=== PATIENT | female | born 1970 | race Caucasian/White ===

== ENCOUNTER 2016-10-09 17:09 | Emergency (ER) | payer MEDICAID ==
[~2016-10-09] VITALS: Ht 162.6 cm; Wt 72.6 kg
[~2016-10-09 17:09] MED LIST: ADVAIR 10028 PUFF/IN IN; ADVAIR 250/5028 PUFF; ADVAIR 250/5028 PUFF IN; ALBUTEROL-200 PUFFS/ IH; ANAPROX DS550 MG PO; ANAPROX275 MG PO; ATIVAN2 MG PO; BACTRIM DS 8001 TAB PO; BACTROBAN2% TP; BENTYL10 MG PO; BENTYL20 MG PO; BENZTROPINE1 MG PO; BIAXIN500 MG PO; CARAFATE 1GM TAB1 GM PO; CIPRO 500MG TA500 MG PO; CIPROFLOXACIN500 MG PO; CLONAZEPAM 1MG T1 MG PO; CYMBALTA20 MG PO; DARVOCET-N 1001 EACH PO; DIAZEPAM5 MG PO; DOCUSATE SODIU250 M1 PO; EFFEXOR75 MG PO; FENTANYL 550 MCG/EAC TP; FENTANYL TR75 MCG/HR TD; FLAGYL 500MG.500 MG PO; FLEXERIL10 M1 PO; FLEXERIL10 MG PO; FLONASE 50 MCG16 GM; IBU800 M1 PO; IBUPROFEN800 MG PO; KEFLEX 500MG.500 MG PO; KETOCONAZOLE2% TP; KETOROLAC 10MG10 MG PO; KLONOPIN1 M2 PO; LAMICTAL 100 M100 MG PO; LEXAPRO 20 MG T20 MG PO; LISINOPRIL HCTZ1 TAB PO; LISINOPRIL2.5 MG PO; LORTAB 5/500 501 TAB PO; MAXZIDE 25 MG-31 TAB PO; MEDROL 4MG. DOSE4 MG PO; MELOXICAM7.5 MG PO; METOPROLOL50 MG OR; MOTRIN600 MG PO; NAPROSYN 500MG500 MG PO; NAPROSYN500 M1 PO; NEURONTIN 300M300 MG PO; NEURONTIN800 MG PO; NORCO 325 MG-51 TAB PO; Oxybutynin5 MG PO; PERCOCET 10 MG1 EACH PO; PERCOCET 5/3251 EACH PO; PHENERGAN 25MG.25 M1 PO; PRILOSEC20 M1 PO; PRILOSEC40 MG PO; PROMETHAZINE HC25 M1 PO; PROVERA10 MG OR; PROZAC40 MG PO; REGLAN 10 MG TA10 MG PO; RELAFEN750 MG PO; REMERON30 MG PO; REQUIP0.5 MG PO; ROBAXIN-750750 MG PO; SEPTRA DS 800 M1 TAB PO; SEROQUEL 100MG100 MG PO; SEROQUEL XR150 MG PO; SEROQUEL50 MG PO; SYMBICORT1 AE1 IH; TAGAMET800 MG PO; TESSALON PERLE100 MG PO; TORADOL10 M2 PO; VALIUM 10MG TAB10 MG PO; VENLAFAXINE HC100 MG PO; VISTARIL25 M1; ZANAFLEX 2MG TAB2 MG PO; ZITHROMAX Z PA250 MG PO; ZOFRAN ODT8 MG PO; ZOFRAN4 MG PO; ZYRTEC10 M3 PO
[2016-10-09] MEDS ORDERED: DEPAKOTE ER250 MG PO (17:37)
[2016-10-09] MEDS ORDERED: VISTARIL25 M1 PO (17:57)
[2016-10-09] MEDS ORDERED: PROMETHAZINE HC25 M1 PO (17:57)
--- NOTE | 2016-10-09 18:00 | Urgent Treatment Center Report ---
History of Present Issue ALLERGIES Coded Allergies: codeine (08/03/15) lamotrigine (From LAMICTAL) (08/03/15) Home Medications Reported Medications Metoprolol Tartrate (Metoprolol) 25 MG OR DAILY Gabapentin (Neurontin) 800 MG PO TID Divalproex Sodium (Depakote ER) 250 MG PO DAILY History Medical History General CAD? No Angina: No [place]: No Hypertension? Yes Hyperlipidemia? No CHF? No DVT? No PE? No COPD? No Asthma? Yes Anemia? No GERD? Yes Gastric ulcers? Yes GI Bleed? No Hernia? No Thyroid Problems? No Hypothyroidism? No CVA? No Seizures? No Diabetes? No Insulin Dependent: No Insulin Pump: No Home FSBS? No Renal Insuffiency? No UTI? No Stones? No BPH? No GB Disease: Yes Nephritic Syndrome? No Asplenia? No Hepatitis? No Sickle Cell Disease? No Arthritis? Yes Migraines? No Cataracts? No Glaucoma? No MRSA? Yes HIV? No TB? No Anxiety? Yes Depression? Yes Cancer? Yes Site: CERVICAL More? Yes Additional hx: BIPOLAR Immunization HX DT/Tetanus Unknown Flu NEVER Pneumonia REFUSES Surgical Hx Previous Surgery?Y GALLBLADDER C SECTION' COLONOSCOPY 2007 L KNEE NECK CYST REMOVAL FROM R WRIST Tubal Ligation COLONOSCOPY AND UGIN GASTROPARESIS CERVICALL FUSION ENDOSCOPY. SECOND CERVICAL FUSION Family History Family HX Diabetes No CAD No Hypertension Yes Hyperlipidemia Yes Cancer Yes TB No Social History Smoking Hx Smoker: Current Every Day Smoker Tobacco: Yes Type Cigarettes Packs/day < 1 Pack Alcohol Alcohol: Yes Review of Systems All Other Systems Reviewed and Negative Gastrointestinal diarrhea, nausea, vomiting Psychiatric/Neurological anxiety, depressed Physical Exam Vital Signs Vital Signs Date Time Temp Pulse Resp B/P Pulse O2 O2 Flow FiO2 Ox Delivery Rate 10/09 1736 98.8 86 20 145/92 98 10/09 1720 98.8 86 20 145/92 98 General Appearance normal appearance, no apparent distress Respiratory Status No: respiratory distress, trachea midline. Cardiovascular regular rate/rhythm Gastrointestinal soft, no organomegaly Neurologic alert, oriented x 3 Mental status depressed affect Medical Decision Making LABS/Meds/Orders Pt receiving controlled substance in ED? No Departure Departure Time of Disposition 1754 Disposition DC Home or Self Care(routine) Clinical Impression Primary Impression: Nausea Secondary Impressions: Anxiety, Diarrhea Condition STABLE Referrals [facility] [place] Patient Instructions DI for Anxiety -- Adult Additional Instructions Call [facility] tomorrow for help getting safe housing Discharge Counseling Counseled pt/family regarding follow up needs Prescriptions Current Visit Scripts PROMETHAZINE HCL (Promethazine 25mg Tab) 25 MG PO Q4HP PRN N/V #10 TAB Hydroxyzine Pamoate (Vistaril 25MG CAP) 25 MG PO Q6HP PRN ANXIETY #20 CAP at 8111
--- NOTE | 2016-10-09 18:00 | Urgent Treatment Center Report ---
History of Present Issue ALLERGIES Coded Allergies: codeine (08/03/15) lamotrigine (From LAMICTAL) (08/03/15) Home Medications Reported Medications Metoprolol Tartrate (Metoprolol) 25 MG OR DAILY Gabapentin (Neurontin) 800 MG PO TID Divalproex Sodium (Depakote ER) 250 MG PO DAILY History Medical History General CAD? No Angina: No [place]: No Hypertension? Yes Hyperlipidemia? No CHF? No DVT? No PE? No COPD? No Asthma? Yes Anemia? No GERD? Yes Gastric ulcers? Yes GI Bleed? No Hernia? No Thyroid Problems? No Hypothyroidism? No CVA? No Seizures? No Diabetes? No Insulin Dependent: No Insulin Pump: No Home FSBS? No Renal Insuffiency? No UTI? No Stones? No BPH? No GB Disease: Yes Nephritic Syndrome? No Asplenia? No Hepatitis? No Sickle Cell Disease? No Arthritis? Yes Migraines? No Cataracts? No Glaucoma? No MRSA? Yes HIV? No TB? No Anxiety? Yes Depression? Yes Cancer? Yes Site: CERVICAL More? Yes Additional hx: BIPOLAR Immunization HX DT/Tetanus Unknown Flu NEVER Pneumonia REFUSES Surgical Hx Previous Surgery?Y GALLBLADDER C SECTION' COLONOSCOPY 2007 L KNEE NECK CYST REMOVAL FROM R WRIST Tubal Ligation COLONOSCOPY AND UGIN GASTROPARESIS CERVICALL FUSION ENDOSCOPY. SECOND CERVICAL FUSION Family History Family HX Diabetes No CAD No Hypertension Yes Hyperlipidemia Yes Cancer Yes TB No Social History Smoking Hx Smoker: Current Every Day Smoker Tobacco: Yes Type Cigarettes Packs/day < 1 Pack Alcohol Alcohol: Yes Review of Systems All Other Systems Reviewed and Negative Gastrointestinal diarrhea, nausea, vomiting Psychiatric/Neurological anxiety, depressed Physical Exam Vital Signs Vital Signs Date Time Temp Pulse Resp B/P Pulse O2 O2 Flow FiO2 Ox Delivery Rate 10/09 1736 98.8 86 20 145/92 98 10/09 1720 98.8 86 20 145/92 98 General Appearance normal appearance, no apparent distress Respiratory Status No: respiratory distress, trachea midline. Cardiovascular regular rate/rhythm Gastrointestinal soft, no organomegaly Neurologic alert, oriented x 3 Mental status depressed affect Medical Decision Making LABS/Meds/Orders Pt receiving controlled substance in ED? No Departure Departure Time of Disposition 1754 Disposition DC Home or Self Care(routine) Clinical Impression Primary Impression: Nausea Secondary Impressions: Anxiety, Diarrhea Condition STABLE Referrals [facility] [place] Patient Instructions DI for Anxiety -- Adult Additional Instructions Call [facility] tomorrow for help getting safe housing Discharge Counseling Counseled pt/family regarding follow up needs Prescriptions Current Visit Scripts PROMETHAZINE HCL (Promethazine 25mg Tab) 25 MG PO Q4HP PRN N/V #10 TAB Hydroxyzine Pamoate (Vistaril 25MG CAP) 25 MG PO Q6HP PRN ANXIETY #20 CAP at 3490
[2016-10-09 18:06] VITALS: BP 145/92
[2016-10-12] MEDS ORDERED: ZOFRAN4 MG PO (07:35)
== END 2016-10-09 18:06 | disposition home or self-care (01) ==
LOC: ER 17:09 → UTC 17:27
DX: R11.0 Nausea (principal); F41.8 Other specified anxiety disorders; R19.7 Diarrhea, unspecified; K21.9 Gastro-esophageal reflux disease without esophagitis; I10 Essential (primary) hypertension; Z72.0 Tobacco use